=== PATIENT | male | born 1995 | race African-American/Black ===

== ENCOUNTER 2018-10-20 01:16 | Inpatient (IN) | payer SELFPAY ==
[2018-10-20] MEDS ORDERED: IPRATROPIUM/ALBUTEROL 0.5-2.5 MG/3 ML AMPUL NEB PRN (01:44)
[2018-10-20] MEDS ORDERED: NORMAL SALINE 1000 ML 1,000 ML IV PRN ×2 (01:45→02:30)
--- NOTE | 2018-10-20 04:53 | PDOC H&P ---
History of Present Illness Admission Date/PCP: 10/20/18 01:16 Patient complains of: Seizure History of Present Illness: RANDI SAPP is a 23 year old male former [employer] with history of seizure disorder on Keppra. He presented to [facility] after a seizure where he was witnessed to have a second seizure followed by combative behavior requiring restraints, IV Ativan and Haldol. His workup was notable for acute renal failure, elevated total CK and urine drug screen positive for cannabis. He is transferred to [facility] as he is in eligible for care at [facility]. Patient admits lifestyle and medication indiscretion with missing Keppra doses and marijuana. He denies other recreational drug use and/or alcohol. Denying injury, fever chills nausea vomiting or headache. His last seizure was approximately 6 months ago. Past Medical History Medical History: None Neurological Medical History: Reports: Seizures Psychiatric Medical History: Denies: Depression Past Surgical History Past Surgical History: Reports: None Social History Information Source: Patient Smoking Status: Former Smoker Frequency of Alcohol Use: None Hx Recreational Drug Use: No Drugs: Marijuana Hx Prescription Drug Abuse: No - Advance Directive Resuscitation Status: Full Code Family History Family History: Hypertension Parental Family History Reviewed: Yes Children Family History Reviewed: Yes Sibling(s) Family History Reviewed.: Yes Review of Systems Constitutional: ABSENT: chills, fever(s), headache(s), weight gain, weight loss Eyes: ABSENT: visual disturbances Ears: ABSENT: hearing changes Cardiovascular: ABSENT: chest pain, dyspnea on exertion, edema, orthropnea, palpitations Respiratory: ABSENT: cough, hemoptysis Gastrointestinal: ABSENT: abdominal pain, constipation, diarrhea, hematemesis, hematochezia, nausea, vomiting Genitourinary: ABSENT: dysuria, hematuria Musculoskeletal: ABSENT: joint swelling Integumentary: ABSENT: rash, wounds Neurological: ABSENT: abnormal gait, abnormal speech, confusion, dizziness, focal weakness, syncope Psychiatric: ABSENT: anxiety, depression, homidical ideation, suicidal ideation Endocrine: ABSENT: cold intolerance, heat intolerance, polydipsia, polyuria Hematologic/Lymphatic: ABSENT: easy bleeding, easy bruising Physical Exam Vital Signs: Temp Pulse Resp BP Pulse Ox 99.4 F 105 H 18 141/75 H 100 10/20/18 01:40 10/20/18 01:40 10/20/18 01:40 10/20/18 01:40 10/20/18 01:40 Intake & Output 10/18/18 10/19/18 10/20/18 11:59 11:59 11:59 Weight 100.5 kg General appearance: PRESENT: no acute distress, well-developed, well-nourished Head exam: PRESENT: atraumatic, normocephalic Eye exam: PRESENT: conjunctiva pink, EOMI, PERRLA. ABSENT: scleral icterus Ear exam: PRESENT: normal external ear exam Mouth exam: PRESENT: moist, tongue midline Neck exam: ABSENT: carotid bruit, JVD, lymphadenopathy, thyromegaly Respiratory exam: PRESENT: clear to auscultation abby. ABSENT: rales, rhonchi, wheezes Cardiovascular exam: PRESENT: RRR. ABSENT: diastolic murmur, rubs, systolic murmur Pulses: PRESENT: normal dorsalis pedis pul Vascular exam: PRESENT: normal capillary refill GI/Abdominal exam: PRESENT: normal bowel sounds, soft. ABSENT: distended, guarding, mass, organolmegaly, rebound, tenderness Rectal exam: PRESENT: deferred Extremities exam: PRESENT: full ROM. ABSENT: calf tenderness, clubbing, pedal edema Neurological exam: PRESENT: alert, awake, oriented to person, oriented to place, oriented to time, oriented to situation, CN II-XII grossly intact. ABSENT: motor sensory deficit Psychiatric exam: PRESENT: appropriate affect, normal mood. ABSENT: homicidal ideation, suicidal ideation Skin exam: PRESENT: dry, intact, warm. ABSENT: cyanosis, rash Assessment & Plan - Diagnosis (1) Seizure Is this a current diagnosis for this admission?: Yes Plan: Secondary to medication and lifestyle indiscretion. Keppra ordered, Ativan as needed seizure activity. Education (2) Acute renal failure Is this a current diagnosis for this admission?: Yes Plan: Likely secondary to rhabdomyolysis. IV fluid challenge initiated, follow-up chemistry and total CK (3) Rhabdomyolysis Is this a current diagnosis for this admission?: Yes Plan: Secondary to #1, IV fluid challenge initiated, follow-up total CK (4) Substance abuse Is this a current diagnosis for this admission?: Yes Plan: Education - Time Time Spent: 50 to 70 Minutes - Inpatient Certification Medical Necessity: Need Close Monitoring Due to Risk of Patient Decompensation
[2018-10-20 05:30] LABS: ANION GAP 11 (5-19); BLOOD UREA NITROGEN 17 mg/dL (7-20); CALCIUM 9.4 mg/dL (8.4-10.2); CARBON DIOXIDE 20 mmol/L (22-30); CHLORIDE 108 mmol/L (98-107); GLUCOSE 104 mg/dL (75-110); POTASSIUM 4.2 mmol/L (3.6-5.0); SODIUM 138.9 mmol/L (137-145)
[2018-10-20] MEDS: HEPARIN SOD (PORCINE) 5,000 UNIT/ML 1 ML SYRINGE SUBCUT SCH ×3 (07:35→21:12)
[2018-10-20 08:19] LABS: APPEARANCE,URINE CLOUDY; BILIRUBIN,URINE NEGATIVE (NEGATIVE); COLOR,URINE YELLOW; GLUCOSE, URINE NEGATIVE (NEGATIVE); KETONES,URINE NEGATIVE (NEGATIVE); LEUKOCYTE ESTERASE,URINE NEGATIVE (NEGATIVE); NITRITE,URINE NEGATIVE (NEGATIVE); PROTEIN,URINE 100 mg/dL (NEGATIVE); URINE SPECIFIC GRAVITY 1.011; UROBILINOGEN,URINE NEGATIVE mg/dL (<2.0)
[2018-10-20 08:58] LABS: ABSOLUTE BASOPHILS # (AUTO) 0.1 10^3/uL (0.0-0.2); ABSOLUTE LYMPHOCYTES (AUTO) 0.8 10^3/uL (0.5-4.7); ABSOLUTE MONOCYTES (AUTO) 0.9 10^3/uL (0.1-1.4); ABSOLUTE NEUT (AUTO) 10.9 10^3/uL (1.7-8.2); BASOPHILS % (AUTO) 0.7 % (0-2); HEMATOCRIT 43.1 % (37.9-51.0); HEMOGLOBIN 14.6 g/dL (13.5-17.0); MEAN CORPUSCULAR HEMOGLOBIN 30.4 pg (27.0-33.4); MEAN CORPUSCULAR HGB CONC 33.8 g/dL (32.0-36.0); MEAN CORPUSCULAR VOLUME 90 fl (80-97); MONOCYTES % (AUTO) 7.3 % (3-13); PLATELET COUNT 127 10^3/uL (150-450); RED CELL DISTRIBUTION WIDTH 12.6 % (11.5-14.0); TOTAL CELLS COUNTED % (AUTO) 100 %; WHITE BLOOD COUNT 12.7 10^3/uL (4.0-10.5)
[2018-10-20] MEDS ORDERED: NORMAL SALINE 1000 ML 3,000 ML IV ONE (09:00)
[2018-10-20] MEDS: LEVETIRACETAM 500 MG TABLET PO SCH ×2 (09:49→21:44)
[2018-10-20] MEDS ORDERED: DOCUSATE SODIUM 100 MG/10 ML UDC PO SCH (10:00)
[2018-10-20] MEDS ORDERED: NORMAL SALINE 1000 ML 1,000 ML IV ONE (12:09)
[2018-10-20] MEDS ORDERED: DICYCLOMINE HCL 20 MG TABLET PO ONE (15:00)
[2018-10-20] MEDS: NORMAL SALINE 1000 ML 1,000 ML IV PRN ×2 (15:03→17:17)
[2018-10-20] MEDS: DOCUSATE SODIUM 100 MG CAPSULE PO SCH (17:03)
[2018-10-21 05:12] LABS: ABSOLUTE BASOPHILS # (AUTO) 0.1 10^3/uL (0.0-0.2); ABSOLUTE LYMPHOCYTES (AUTO) 0.9 10^3/uL (0.5-4.7); ABSOLUTE MONOCYTES (AUTO) 0.8 10^3/uL (0.1-1.4); ABSOLUTE NEUT (AUTO) 6.4 10^3/uL (1.7-8.2); BASOPHILS % (AUTO) 0.8 % (0-2); EOSINOPHILS % (AUTO) 0.2 % (0-6); HEMATOCRIT 37.6 % (37.9-51.0); HEMOGLOBIN 13.1 g/dL (13.5-17.0); LYMPHOCYTES % (AUTO) 11.3 % (13-45); MEAN CORPUSCULAR HGB CONC 34.7 g/dL (32.0-36.0); MEAN CORPUSCULAR VOLUME 90 fl (80-97); PLATELET COUNT 105 10^3/uL (150-450); RED BLOOD COUNT 4.21 10^6/uL (4.35-5.55); RED CELL DISTRIBUTION WIDTH 12.8 % (11.5-14.0); SEGMENTED NEUTROPHILS % (AUTO) 77.7 % (42-78); TOTAL CELLS COUNTED % (AUTO) 100 %; WHITE BLOOD COUNT 8.2 10^3/uL (4.0-10.5)
[2018-10-21 05:40] LABS: ANION GAP 8 (5-19); BLOOD UREA NITROGEN 23 mg/dL (7-20); CALCIUM 8.7 mg/dL (8.4-10.2); CARBON DIOXIDE 20 mmol/L (22-30); CHLORIDE 113 mmol/L (98-107); GLUCOSE 97 mg/dL (75-110); SODIUM 140.5 mmol/L (137-145)
[2018-10-21 05:45] LABS: POTASSIUM 4.1 mmol/L (3.6-5.0)
[2018-10-21] MEDS: HEPARIN SOD (PORCINE) 5,000 UNIT/ML 1 ML SYRINGE SUBCUT SCH ×3 (05:55→22:07)
[2018-10-21 06:28] LABS: CREATINE KINASE 11053 U/L (55-170)
[2018-10-21] MEDS: LEVETIRACETAM 500 MG TABLET PO SCH ×2 (09:30→22:14)
[2018-10-21] MEDS: DOCUSATE SODIUM 100 MG CAPSULE PO SCH ×2 (09:33→17:11)
[2018-10-21] MEDS ORDERED: NORMAL SALINE 1000 ML 1,000 ML IV PRN (10:47)
[2018-10-21] MEDS ORDERED: RINGERS SOLUTION,LACTATED 2,000 ML IV PRN (10:47)
[2018-10-21] MEDS ORDERED: NORMAL SALINE 1000 ML 2,000 ML IV PRN (11:00)
--- NOTE | 2018-10-21 16:14 | PDOC PROGRESS REPORT ---
Subjective Progress Note for:: 10/21/18 Subjective:: This is a 23 yr old male with a PMH of seizure disorder not complaint on his Keppra at home who was brought in due to recurrence of seizures (x2) and was also noted have rhabdomyolisis with elevated CK and acute renal failure. Patient was given IV fluid bolus and continued on IV fluids. He was given another bolus yesterday and was supposed to be continued on IV fluids but appears he did not get maintenance IV fluids overnight. This morning, his CK and creatinine continue to go up. He does report of generalized muscle pains. Denies chest pain or SOB. He is diuresing well. Reason For Visit: RHABDOMYOLYSIS,ARF Physical Exam Vital Signs: Temp Pulse Resp BP Pulse Ox 98.5 F 69 18 122/87 H 100 10/21/18 11:52 10/21/18 14:00 10/21/18 11:52 10/21/18 11:52 10/21/18 11:52 Intake & Output 10/20/18 10/21/18 10/22/18 06:59 06:59 06:59 Intake Total 4894 2459 Output Total 1575 1200 Balance 3319 1259 Weight 221 lb 9.033 oz 223 lb 1.725 oz General appearance: PRESENT: no acute distress, well-developed, well-nourished Head exam: PRESENT: atraumatic, normocephalic Eye exam: PRESENT: conjunctiva pink, EOMI, PERRLA. ABSENT: scleral icterus Ear exam: PRESENT: normal external ear exam Mouth exam: PRESENT: moist, tongue midline Neck exam: ABSENT: carotid bruit, JVD, lymphadenopathy, thyromegaly Respiratory exam: PRESENT: clear to auscultation abby. ABSENT: rales, rhonchi, wheezes Cardiovascular exam: PRESENT: RRR. ABSENT: diastolic murmur, rubs, systolic murmur Pulses: PRESENT: normal dorsalis pedis pul GI/Abdominal exam: PRESENT: normal bowel sounds, soft. ABSENT: distended, guarding, mass, organolmegaly, rebound, tenderness Rectal exam: PRESENT: deferred Neurological exam: PRESENT: alert, awake, oriented to person, oriented to place, oriented to time, oriented to situation, CN II-XII grossly intact. ABSENT: motor sensory deficit Results Laboratory Results: 10/21/18 04:34 10/21/18 10/21/18 04:34 04:34 WBC 8.2 RBC 4.21 L Hgb 13.1 L Hct 37.6 L MCV 90 MCH 31.0 MCHC 34.7 RDW 12.8 Plt Count 105 L Seg Neutrophils % 77.7 Lymphocytes % 11.3 L Monocytes % 10.0 Eosinophils % 0.2 Basophils % 0.8 Absolute Neutrophils 6.4 Absolute Lymphocytes 0.9 Absolute Monocytes 0.8 Absolute Eosinophils 0.0 Absolute Basophils 0.1 Sodium 140.5 Potassium 4.1 Chloride 113 H Carbon Dioxide 20 L Anion Gap 8 BUN 23 H Creatinine 5.39 H Est GFR ( Amer) 16 L Est GFR (Non-Af Amer) 13 L Glucose 97 Calcium 8.7 10/20/18 10/20/18 10/20/18 04:55 11:01 16:40 Creatine Kinase 1404 H 2667 H 6092 H 10/21/18 04:34 Creatine Kinase 14484 H Assessment & Plan - Diagnosis (1) Acute renal failure Is this a current diagnosis for this admission?: Yes Plan: Secondary to rhadomyolysis. Aggressive IV fluid hydration. Will give 2 L bolus this morning and continue NS at 200 cc/hr. Will repeat CK and BMP this afternoon and will give another bolus. (2) Rhabdomyolysis Is this a current diagnosis for this admission?: Yes Plan: CK has significantly went up today. Plan as per #1. (3) Seizure Is this a current diagnosis for this admission?: Yes Plan: No recurrence since admission. Continue Keppra. - Time Time Spent with patient: 25-34 minutes
[2018-10-21] MEDS ORDERED: NORMAL SALINE 1000 ML 1,000 ML IV ONE (16:30)
[2018-10-21 16:43] LABS: ANION GAP 6 (5-19); BLOOD UREA NITROGEN 24 mg/dL (7-20); CALCIUM 8.5 mg/dL (8.4-10.2); CARBON DIOXIDE 23 mmol/L (22-30); CHLORIDE 113 mmol/L (98-107); GLUCOSE 85 mg/dL (75-110); POTASSIUM 4.1 mmol/L (3.6-5.0); SODIUM 141.5 mmol/L (137-145)
[2018-10-21] MEDS: NORMAL SALINE 1000 ML 1,000 ML IV PRN ×2 (17:06→20:03)
[2018-10-21 17:24] LABS: CREATINE KINASE 25016 U/L (55-170)
--- NOTE | 2018-10-21 19:12 | RADIOLOGY REPORT (SQ) ---
EXAM DESCRIPTION: CT ABD/PELVIS NO ORAL OR IV COMPLETED DATE/TIME: 10/21/2018 7:00 pm REASON FOR STUDY: abd pain/hypog pain, acute renal failure COMPARISON: None. TECHNIQUE: CT scan of the abdomen and pelvis performed without intravenous or oral contrast. Images reviewed with lung, soft tissue, and bone windows. Reconstructed coronal and sagittal MPR images revi ewed. All images stored on PACS. All CT scanners at this facility use dose modulation, iterative reconstruction, and/or weight based d osing when appropriate to reduce radiation dose to as low as reasonably achievable (ALARA). [facility]: Dose Right [facility]: CareDose [facility]: Dose Right [facility]: Teradose 4D [facility]: [employer] RADIATION DOSE: mGy. LIMITATIONS: None. FINDINGS: LOWER CHEST: Trace right pleural fluid. NON-CONTRASTED LIVER, SPLEEN, ADRENALS: Evaluation limited by lack of IV contrast. No identified sign ificant masses. PANCREAS: No masses. No peripancreatic inflammatory changes. GALLBLADDER: Gallbladder looks mildly heterogeneous, possibly with some pericholecystic fluid. No du ct dilatation. RIGHT KIDNEY AND URETER: Minimal perinephric stranding without evidence of mass or obstruction. Slig ht stranding extends along the retroperitoneum/ureter as well. No stones. LEFT KIDNEY AND URETER: Similar findings to the right kidney. No stones. AORTA AND RETROPERITONEUM: No aneurysm. No retroperitoneal masses or adenopathy. BOWEL AND PERITONEAL CAVITY: No obvious masses or inflammatory changes. No free fluid. APPENDIX: Normal. PELVIS, BLADDER, AND ABDOMINAL WALL:Slight thickening of the bladder dome with minimal urachal remnan t. Findings may largely be related to underdistention of the bladder. No discrete mass or stones. No pelvic mass. Trace pelvic free fluid. No abdominal wall mass or hernia. BONES: No significant findings. OTHER: No other significant finding. IMPRESSION: 1. Mild perinephric stranding and subtle retroperitoneal stranding with trace fluid. Findings could be related to urinary tract infection. No obstructing stones or hydronephrosis identified. 2. Heterogeneous gallbladder. This could reflect cholecystitis depending on clinical presentation. 3. Trace pleural fluid. Lungs otherwise clear. 4. Bladder findings as detected. Prominent tissue in the bladder dome is probably artifact and relat ed to underdistention, but difficult to further evaluate. TECHNICAL DOCUMENTATION: JOB ID: [id number] Quality ID # [id number]: Final reports with documentation of one or more dose reduction techniques (e.g., Au tomated exposure control, adjustment of the mA and/or kV according to patient size, use of iterative reconstruction technique) 2010 [employer]- All Rights Reserved Reading location - IP/workstation name: [email or web address]
[2018-10-21] MEDS: ACETAMINOPHEN 325 MG TABLET PO PRN (20:03)
[2018-10-22] MEDS: ACETAMINOPHEN 325 MG TABLET PO PRN (05:07)
[2018-10-22] MEDS: NORMAL SALINE 1000 ML 1,000 ML IV PRN ×3 (05:07→23:27)
[2018-10-22 05:22] LABS: ABSOLUTE EOSINOPHILS # (AUTO) 0.1 10^3/uL (0.0-0.6); ABSOLUTE LYMPHOCYTES (AUTO) 1.1 10^3/uL (0.5-4.7); ABSOLUTE MONOCYTES (AUTO) 0.7 10^3/uL (0.1-1.4); ABSOLUTE NEUT (AUTO) 3.9 10^3/uL (1.7-8.2); BASOPHILS % (AUTO) 0.7 % (0-2); EOSINOPHILS % (AUTO) 1.1 % (0-6); HEMATOCRIT 36.2 % (37.9-51.0); HEMOGLOBIN 12.6 g/dL (13.5-17.0); LYMPHOCYTES % (AUTO) 19.7 % (13-45); MEAN CORPUSCULAR HEMOGLOBIN 31.1 pg (27.0-33.4); MEAN CORPUSCULAR HGB CONC 34.7 g/dL (32.0-36.0); MEAN CORPUSCULAR VOLUME 90 fl (80-97); MONOCYTES % (AUTO) 11.9 % (3-13); PLATELET COUNT 105 10^3/uL (150-450); RED BLOOD COUNT 4.03 10^6/uL (4.35-5.55); RED CELL DISTRIBUTION WIDTH 12.9 % (11.5-14.0); SEGMENTED NEUTROPHILS % (AUTO) 66.6 % (42-78); TOTAL CELLS COUNTED % (AUTO) 100 %; WHITE BLOOD COUNT 5.8 10^3/uL (4.0-10.5)
[2018-10-22] MEDS: HEPARIN SOD (PORCINE) 5,000 UNIT/ML 1 ML SYRINGE SUBCUT SCH ×3 (05:48→22:23)
[2018-10-22 06:02] LABS: ANION GAP 7 (5-19); BLOOD UREA NITROGEN 21 mg/dL (7-20); CALCIUM 8.8 mg/dL (8.4-10.2); CARBON DIOXIDE 21 mmol/L (22-30); CHLORIDE 114 mmol/L (98-107); GLUCOSE 98 mg/dL (75-110); POTASSIUM 4.4 mmol/L (3.6-5.0); SODIUM 141.6 mmol/L (137-145)
[2018-10-22 06:47] LABS: CREATINE KINASE 35084 U/L (55-170)
[2018-10-22] MEDS ORDERED: NORMAL SALINE 1000 ML 2,000 ML IV ONE ×2 (08:30→17:59)
[2018-10-22 08:36] LABS: APPEARANCE,URINE CLEAR; BILIRUBIN,URINE NEGATIVE (NEGATIVE); COLOR,URINE STRAW; GLUCOSE, URINE NEGATIVE (NEGATIVE); KETONES,URINE NEGATIVE (NEGATIVE); LEUKOCYTE ESTERASE,URINE NEGATIVE (NEGATIVE); NITRITE,URINE NEGATIVE (NEGATIVE); PROTEIN,URINE NEGATIVE (NEGATIVE); URINE SPECIFIC GRAVITY 1.004; UROBILINOGEN,URINE NEGATIVE mg/dL (<2.0)
[2018-10-22] MEDS: LEVETIRACETAM 500 MG TABLET PO SCH ×2 (09:25→22:18)
[2018-10-22] MEDS: DOCUSATE SODIUM 100 MG CAPSULE PO SCH ×2 (09:28→17:10)
--- NOTE | 2018-10-22 14:31 | PDOC PROGRESS REPORT ---
Subjective Progress Note for:: 10/22/18 Subjective:: This is a 23 yr old male with a PMH of seizure disorder not complaint on his Keppra at home who was brought in due to recurrence of seizures (x2) and was also noted have rhabdomyolysis with elevated CK and acute renal failure. No acute event overnight. Denies chest pain or SOB. He is diuresing well. He says he feels better today and that the generalized muscle pain is improving. His creatinine has improved but CK has trended up. Reason For Visit: RHABDOMYOLYSIS,ARF Physical Exam Vital Signs: Temp Pulse Resp BP Pulse Ox 98.6 F 50 L 16 138/105 H 100 10/22/18 11:14 10/22/18 11:14 10/22/18 11:14 10/22/18 11:14 10/22/18 11:14 Intake & Output 10/21/18 10/22/18 10/23/18 06:59 06:59 06:59 Intake Total 4894 6003 3100 Output Total 1575 1200 Balance 3319 4803 3100 Weight 223 lb 1.725 oz General appearance: PRESENT: no acute distress, well-developed, well-nourished Head exam: PRESENT: atraumatic, normocephalic Eye exam: PRESENT: conjunctiva pink, EOMI, PERRLA. ABSENT: scleral icterus Ear exam: PRESENT: normal external ear exam Mouth exam: PRESENT: moist, tongue midline Neck exam: ABSENT: carotid bruit, JVD, lymphadenopathy, thyromegaly Respiratory exam: PRESENT: clear to auscultation abby. ABSENT: rales, rhonchi, wheezes Cardiovascular exam: PRESENT: RRR. ABSENT: diastolic murmur, rubs, systolic murmur Pulses: PRESENT: normal dorsalis pedis pul GI/Abdominal exam: PRESENT: normal bowel sounds, soft. ABSENT: distended, guarding, mass, organolmegaly, rebound, tenderness Rectal exam: PRESENT: deferred Neurological exam: PRESENT: alert, awake, oriented to person, oriented to place, oriented to time, oriented to situation, CN II-XII grossly intact. ABSENT: motor sensory deficit Results Laboratory Results: 10/22/18 05:15 10/22/18 05:15 10/21/18 10/22/18 10/22/18 15:22 05:15 05:15 WBC 5.8 RBC 4.03 L Hgb 12.6 L Hct 36.2 L MCV 90 MCH 31.1 MCHC 34.7 RDW 12.9 Plt Count 105 L Seg Neutrophils % 66.6 Lymphocytes % 19.7 Monocytes % 11.9 Eosinophils % 1.1 Basophils % 0.7 Absolute Neutrophils 3.9 Absolute Lymphocytes 1.1 Absolute Monocytes 0.7 Absolute Eosinophils 0.1 Absolute Basophils 0.0 Sodium 141.5 141.6 Potassium 4.1 4.4 Chloride 113 H 114 H Carbon Dioxide 23 21 L Anion Gap 6 7 BUN 24 H 21 H Creatinine 5.49 H 4.63 H Est GFR ( Amer) 16 L 19 L Est GFR (Non-Af Amer) 13 L 16 L Glucose 85 98 Calcium 8.5 8.8 Urine Color Urine Appearance Urine pH Ur Specific Umpire Urine Protein Urine Glucose (UA) Urine Ketones Urine Blood Urine Nitrite Ur Leukocyte Esterase Urine WBC (Auto) Urine RBC (Auto) 10/22/18 08:00 WBC RBC Hgb Hct MCV MCH MCHC RDW Plt Count Seg Neutrophils % Lymphocytes % Monocytes % Eosinophils % Basophils % Absolute Neutrophils Absolute Lymphocytes Absolute Monocytes Absolute Eosinophils Absolute Basophils Sodium Potassium Chloride Carbon Dioxide Anion Gap BUN Creatinine Est GFR ( Amer) Est GFR (Non-Af Amer) Glucose Calcium Urine Color STRAW Urine Appearance CLEAR Urine pH 5.0 Ur Specific Umpire 1.004 Urine Protein NEGATIVE Urine Glucose (UA) NEGATIVE Urine Ketones NEGATIVE Urine Blood MODERATE H Urine Nitrite NEGATIVE Ur Leukocyte Esterase NEGATIVE Urine WBC (Auto) 1 Urine RBC (Auto) 0 10/20/18 10/20/18 10/20/18 04:55 11:01 16:40 Creatine Kinase 1404 H 2667 H 6092 H 10/21/18 10/21/18 10/22/18 04:34 15:22 05:15 Creatine Kinase 14391 H 47730 H 78881 H Impressions: Abdomen/Pelvis CT 10/21/18 17:54 IMPRESSION: 1. Mild perinephric stranding and subtle retroperitoneal stranding with trace fluid. Findings could be related to urinary tract infection. No obstructing stones or hydronephrosis identified. 2. Heterogeneous gallbladder. This could reflect cholecystitis depending on clinical presentation. 3. Trace pleural fluid. Lungs otherwise clear. 4. Bladder findings as detected. Prominent tissue in the bladder dome is probably artifact and related to underdistention, but difficult to further evaluate. Assessment & Plan - Diagnosis (1) Acute renal failure Is this a current diagnosis for this admission?: Yes Plan: Secondary to rhadomyolysis. Will continue aggressive IV fluid hydration. Will give another 2 L bolus this morning and continue NS at 200 cc/hr. Creatinine has improved but CK continues to trend up. Will continue to repeat CK and BMP this afternoon. (2) Rhabdomyolysis Is this a current diagnosis for this admission?: Yes Plan: CK continues to trend up but creatinine has improved. Plan as per #1. (3) Seizure Is this a current diagnosis for this admission?: Yes Plan: Secondary to noncompliance to Keppra. No recurrence since admission. Continue Keppra. - Time Time Spent with patient: 25-34 minutes
[2018-10-22 15:43] LABS: ANION GAP 6 (5-19); BLOOD UREA NITROGEN 17 mg/dL (7-20); CARBON DIOXIDE 23 mmol/L (22-30); CHLORIDE 115 mmol/L (98-107); GLUCOSE 94 mg/dL (75-110); POTASSIUM 3.9 mmol/L (3.6-5.0); SODIUM 144.1 mmol/L (137-145)
[2018-10-22 16:16] LABS: CREATINE KINASE 43585 U/L (55-170)
[2018-10-22] MEDS ORDERED: DICYCLOMINE HCL 10 MG CAPSULE PO ONE (18:00)
[2018-10-22] MEDS ORDERED: PANTOPRAZOLE SODIUM 40 MG VIAL IV ONE (19:00)
[2018-10-22] MEDS: PANTOPRAZOLE SODIUM 40 MG VIAL IV SCH (19:10)
[2018-10-22] MEDS ORDERED: DICYCLOMINE HCL 10 MG CAPSULE ONE (19:51)
--- NOTE | 2018-10-22 22:13 | EKG REPORT ---
SEVERITY:- OTHERWISE NORMAL ECG - SINUS RHYTHM ATRIAL PREMATURE COMPLEX : Confirmed by: Angela Greene MD 22-Oct-2018 22:13:09
[2018-10-23] MEDS: HEPARIN SOD (PORCINE) 5,000 UNIT/ML 1 ML SYRINGE SUBCUT SCH ×4 (05:39→22:48)
[2018-10-23] MEDS: NORMAL SALINE 1000 ML 1,000 ML IV PRN ×2 (06:34→18:34)
[2018-10-23 08:56] LABS: ANION GAP 7 (5-19); BLOOD UREA NITROGEN 13 mg/dL (7-20); CARBON DIOXIDE 24 mmol/L (22-30); CHLORIDE 115 mmol/L (98-107); GLUCOSE 115 mg/dL (75-110); POTASSIUM 3.9 mmol/L (3.6-5.0); SODIUM 146.2 mmol/L (137-145)
[2018-10-23] MEDS: LEVETIRACETAM 500 MG TABLET PO SCH ×2 (09:12→22:51)
[2018-10-23] MEDS: PANTOPRAZOLE SODIUM 40 MG VIAL IV SCH (09:12)
[2018-10-23] MEDS: DOCUSATE SODIUM 100 MG CAPSULE PO SCH ×2 (09:13→17:29)
[2018-10-23 09:48] LABS: CREATINE KINASE 39229 U/L (55-170)
--- NOTE | 2018-10-23 10:46 | RADIOLOGY REPORT (SQ) ---
EXAM DESCRIPTION: CHEST SINGLE VIEW COMPLETED DATE/TIME: 10/23/2018 10:35 am REASON FOR STUDY: shortness of breath COMPARISON: CT abdomen pelvis 10/21/2018 EXAM PARAMETERS: NUMBER OF VIEWS: One view. TECHNIQUE: Single frontal radiographic view of the chest acquired. RADIATION DOSE: NA LIMITATIONS: None. FINDINGS: LUNGS AND PLEURA: Patchy airspace disease right lateral lung base with trace right pleural fluid in the lateral costophrenic sulcus. Left lung clear. No left pleural effusion. No right or left pneumothorax. MEDIASTINUM AND HILAR STRUCTURES: No masses. Contour normal. HEART AND VASCULAR STRUCTURES: Heart normal in size. Normal vasculature. BONES: No acute findings. HARDWARE: None in the chest. OTHER: No other significant finding. IMPRESSION: New airspace disease with trace pleural effusion in the right lateral costophrenic sulcu s TECHNICAL DOCUMENTATION: JOB ID: [id number]- All Rights Reserved Reading location - IP/workstation name: [email or web address]
--- NOTE | 2018-10-23 14:03 | PDOC PROGRESS REPORT ---
Subjective Progress Note for:: 10/23/18 Subjective:: This is a 23 yr old male with a PMH of seizure disorder not complaint on his Keppra at home who was brought in due to recurrence of seizures (x2) and was also noted have rhabdomyolysis with elevated CK and acute renal failure. No acute event overnight. Denies chest pain or SOB. He is diuresing well. He says he continues to feel better. His creatinine continues to improve. CK has also trended down this morning. He did have very minimal SOB this morning but he is saturating well on room air. CXR only shows trace pleural effusion. Fluids were reduced to 150 cc/hr. Reason For Visit: RHABDOMYOLYSIS,ARF Physical Exam Vital Signs: Temp Pulse Resp BP Pulse Ox 97.7 F 52 L 16 142/62 H 100 10/23/18 11:00 10/23/18 11:00 10/23/18 11:00 10/23/18 11:00 10/23/18 11:00 Intake & Output 10/22/18 10/23/18 10/24/18 06:59 06:59 06:59 Intake Total 6003 8459 Output Total 1200 Balance 4803 8459 General appearance: PRESENT: no acute distress, well-developed, well-nourished Head exam: PRESENT: atraumatic, normocephalic Eye exam: PRESENT: conjunctiva pink, EOMI, PERRLA. ABSENT: scleral icterus Ear exam: PRESENT: normal external ear exam Mouth exam: PRESENT: moist, tongue midline Neck exam: ABSENT: carotid bruit, JVD, lymphadenopathy, thyromegaly Respiratory exam: PRESENT: clear to auscultation abby. ABSENT: rales, rhonchi, wheezes Cardiovascular exam: PRESENT: RRR. ABSENT: diastolic murmur, rubs, systolic murmur Pulses: PRESENT: normal dorsalis pedis pul GI/Abdominal exam: PRESENT: normal bowel sounds, soft. ABSENT: distended, guarding, mass, organolmegaly, rebound, tenderness Rectal exam: PRESENT: deferred Neurological exam: PRESENT: alert, awake, oriented to person, oriented to place, oriented to time, oriented to situation, CN II-XII grossly intact. ABSENT: motor sensory deficit Results Laboratory Results: 10/22/18 05:15 10/23/18 08:22 10/22/18 10/23/18 15:10 08:22 Sodium 144.1 146.2 H Potassium 3.9 3.9 Chloride 115 H 115 H Carbon Dioxide 23 24 Anion Gap 6 7 BUN 17 13 Creatinine 3.96 H 2.49 H Est GFR ( Amer) 23 L 39 L Est GFR (Non-Af Amer) 19 L 32 L Glucose 94 115 H Calcium 9.0 9.0 10/20/18 10/20/18 10/20/18 04:55 11:01 16:40 Creatine Kinase 1404 H 2667 H 6092 H 10/21/18 10/21/18 10/22/18 04:34 15:22 05:15 Creatine Kinase 98998 H 78121 H 23478 H 10/22/18 10/23/18 15:10 08:22 Creatine Kinase 97381 H 17432 H Impressions: Abdomen/Pelvis CT 10/21/18 17:54 IMPRESSION: 1. Mild perinephric stranding and subtle retroperitoneal stranding with trace fluid. Findings could be related to urinary tract infection. No obstructing stones or hydronephrosis identified. 2. Heterogeneous gallbladder. This could reflect cholecystitis depending on clinical presentation. 3. Trace pleural fluid. Lungs otherwise clear. 4. Bladder findings as detected. Prominent tissue in the bladder dome is probably artifact and related to underdistention, but difficult to further evaluate. Chest X-Ray 10/23/18 00:00 IMPRESSION: New airspace disease with trace pleural effusion in the right lateral costophrenic sulcus Assessment & Plan - Diagnosis (1) Acute renal failure Is this a current diagnosis for this admission?: Yes Plan: Secondary to rhadomyolysis. Creatinine continues to improve and [place] remain [place] [address]. Will reduce IV fluids for now to 150 cc/hr due to minimal SOB and trace pleural effusion on CXR likely related to aggressive hydration. No obvious congestion on CXR. Lung sounds are clear. (2) Rhabdomyolysis Is this a current diagnosis for this admission?: Yes Plan: Plan as per #1. (3) Seizure Is this a current diagnosis for this admission?: Yes Plan: Secondary to noncompliance to Keppra. No recurrence since admission. Continue Keppra. - Time Time Spent with patient: 25-34 minutes
--- NOTE | 2018-10-23 15:38 | RADIOLOGY REPORT (SQ) ---
EXAM DESCRIPTION: CHEST SINGLE VIEW COMPLETED DATE/TIME: 10/23/2018 3:25 pm REASON FOR STUDY: shortness of breath COMPARISON: 117 EXAM PARAMETERS: NUMBER OF VIEWS: One view. TECHNIQUE: Single frontal radiographic view of the chest acquired. RADIATION DOSE: NA LIMITATIONS: None. FINDINGS: LUNGS AND PLEURA: No opacities, masses or pneumothorax. No pleural effusion. MEDIASTINUM AND HILAR STRUCTURES: No masses. Contour normal. HEART AND VASCULAR STRUCTURES: Heart normal in size. Normal vasculature. BONES: No acute findings. HARDWARE: None in the chest. OTHER: No other significant finding. IMPRESSION: NO ACUTE RADIOGRAPHIC FINDING IN THE CHEST. TECHNICAL DOCUMENTATION: JOB ID: [id number] [employer]- All Rights Reserved Reading location - IP/workstation name: [email or web address]
[2018-10-23 15:59] LABS: ANION GAP 7 (5-19); BLOOD UREA NITROGEN 11 mg/dL (7-20); CALCIUM 8.8 mg/dL (8.4-10.2); CARBON DIOXIDE 27 mmol/L (22-30); CHLORIDE 111 mmol/L (98-107); GLUCOSE 78 mg/dL (75-110); SODIUM 145.4 mmol/L (137-145)
[2018-10-23 16:18] LABS: CREATINE KINASE 38006 U/L (55-170)
[2018-10-24] MEDS: NORMAL SALINE 1000 ML 1,000 ML IV PRN ×4 (00:29→15:38)
[2018-10-24] MEDS: HEPARIN SOD (PORCINE) 5,000 UNIT/ML 1 ML SYRINGE SUBCUT SCH ×3 (05:20→21:53)
[2018-10-24 06:18] LABS: ABSOLUTE EOSINOPHILS # (AUTO) 0.2 10^3/uL (0.0-0.6); ABSOLUTE LYMPHOCYTES (AUTO) 1.4 10^3/uL (0.5-4.7); ABSOLUTE MONOCYTES (AUTO) 0.4 10^3/uL (0.1-1.4); ABSOLUTE NEUT (AUTO) 1.8 10^3/uL (1.7-8.2); BASOPHILS % (AUTO) 0.9 % (0-2); EOSINOPHILS % (AUTO) 5.2 % (0-6); HEMATOCRIT 35.6 % (37.9-51.0); HEMOGLOBIN 12.4 g/dL (13.5-17.0); LYMPHOCYTES % (AUTO) 35.6 % (13-45); MEAN CORPUSCULAR HEMOGLOBIN 30.7 pg (27.0-33.4); MEAN CORPUSCULAR HGB CONC 34.7 g/dL (32.0-36.0); MEAN CORPUSCULAR VOLUME 88 fl (80-97); MONOCYTES % (AUTO) 11.6 % (3-13); PLATELET COUNT 126 10^3/uL (150-450); RED BLOOD COUNT 4.03 10^6/uL (4.35-5.55); RED CELL DISTRIBUTION WIDTH 12.5 % (11.5-14.0); SEGMENTED NEUTROPHILS % (AUTO) 46.7 % (42-78); TOTAL CELLS COUNTED % (AUTO) 100 %; WHITE BLOOD COUNT 3.9 10^3/uL (4.0-10.5)
[2018-10-24 06:34] LABS: ANION GAP 7 (5-19); BLOOD UREA NITROGEN 8 mg/dL (7-20); CALCIUM 8.7 mg/dL (8.4-10.2); CARBON DIOXIDE 28 mmol/L (22-30); CHLORIDE 108 mmol/L (98-107); GLUCOSE 104 mg/dL (75-110); POTASSIUM 3.6 mmol/L (3.6-5.0); SODIUM 142.9 mmol/L (137-145)
[2018-10-24 07:29] LABS: CREATINE KINASE 22419 U/L (55-170)
--- NOTE | 2018-10-24 09:23 | RADIOLOGY REPORT (SQ) ---
EXAM DESCRIPTION: CHEST SINGLE VIEW COMPLETED DATE/TIME: 10/24/2018 9:11 am REASON FOR STUDY: assess for effusion/congestion COMPARISON: 10/23/2018. EXAM PARAMETERS: NUMBER OF VIEWS: One view. TECHNIQUE: Single frontal radiographic view of the chest acquired. RADIATION DOSE: NA LIMITATIONS: None. FINDINGS: LUNGS AND PLEURA: No opacities, masses or pneumothorax. No pleural effusion. MEDIASTINUM AND HILAR STRUCTURES: No masses. Contour normal. HEART AND VASCULAR STRUCTURES: Heart normal in size. Normal vasculature. BONES: No acute findings. HARDWARE: None in the chest. OTHER: No other significant finding. IMPRESSION: NO ACUTE RADIOGRAPHIC FINDING IN THE CHEST. TECHNICAL DOCUMENTATION: JOB ID: [id number] [employer]- All Rights Reserved Reading location - IP/workstation name: [email or web address]
[2018-10-24] MEDS: LEVETIRACETAM 500 MG TABLET PO SCH ×2 (10:29→21:55)
[2018-10-24] MEDS: PANTOPRAZOLE SODIUM 40 MG VIAL IV SCH (10:29)
[2018-10-24] MEDS: DOCUSATE SODIUM 100 MG CAPSULE PO SCH ×2 (10:48→17:24)
--- NOTE | 2018-10-24 15:43 | PDOC PROGRESS REPORT ---
Subjective Progress Note for:: 10/24/18 Subjective:: 10/24/[id number]-fmnn-old male with history of seizure disorder admitted for seizure activity and rhabdomyolysis. no acute events in the last 24 hours. Patient is afebrile. Reason For Visit: SEIZURE,ARF,RHABDOMYOLYSIS, Physical Exam Vital Signs: Temp Pulse Resp BP Pulse Ox 98.6 F 59 L 15 150/91 H 99 10/24/18 11:20 10/24/18 14:00 10/24/18 11:20 10/24/18 11:20 10/24/18 11:20 Intake & Output 10/23/18 10/24/18 10/25/18 06:59 06:59 06:59 Intake Total 8459 7532 1000 Balance 8459 7532 1000 Weight 109.7 kg General appearance: PRESENT: other - Well-built male not in distress. Head exam: PRESENT: atraumatic Eye exam: PRESENT: PERRLA Mouth exam: PRESENT: moist Neck exam: ABSENT: carotid bruit, JVD, lymphadenopathy, thyromegaly Respiratory exam: PRESENT: clear to auscultation abby. ABSENT: rales, rhonchi, wheezes Cardiovascular exam: PRESENT: RRR. ABSENT: diastolic murmur, rubs, systolic murmur GI/Abdominal exam: PRESENT: normal bowel sounds, soft. ABSENT: distended, guarding, mass, organolmegaly, rebound, tenderness Extremities exam: PRESENT: full ROM. ABSENT: calf tenderness, clubbing, pedal edema Neurological exam: PRESENT: alert, awake, oriented to person, oriented to place, oriented to time, oriented to situation, CN II-XII grossly intact. ABSENT: motor sensory deficit Psychiatric exam: PRESENT: appropriate affect, normal mood. ABSENT: homicidal ideation, suicidal ideation Results Laboratory Results: 10/24/18 05:18 10/24/18 05:18 10/23/18 10/23/18 10/24/18 08:22 15:30 05:18 WBC 3.9 L RBC 4.03 L Hgb 12.4 L Hct 35.6 L MCV 88 MCH 30.7 MCHC 34.7 RDW 12.5 Plt Count 126 L Seg Neutrophils % 46.7 Lymphocytes % 35.6 Monocytes % 11.6 Eosinophils % 5.2 Basophils % 0.9 Absolute Neutrophils 1.8 Absolute Lymphocytes 1.4 Absolute Monocytes 0.4 Absolute Eosinophils 0.2 Absolute Basophils 0.0 Sodium 146.2 H 145.4 H Potassium 3.9 4.0 Chloride 115 H 111 H Carbon Dioxide 24 27 Anion Gap 7 7 BUN 13 11 Creatinine 2.49 H 1.91 H Est GFR ( Amer) 39 L 53 L Est GFR (Non-Af Amer) 32 L 44 L Glucose 115 H 78 Calcium 9.0 8.8 10/24/18 05:18 WBC RBC Hgb Hct MCV MCH MCHC RDW Plt Count Seg Neutrophils % Lymphocytes % Monocytes % Eosinophils % Basophils % Absolute Neutrophils Absolute Lymphocytes Absolute Monocytes Absolute Eosinophils Absolute Basophils Sodium 142.9 Potassium 3.6 Chloride 108 H Carbon Dioxide 28 Anion Gap 7 BUN 8 Creatinine 1.59 H Est GFR ( Amer) > 60 Est GFR (Non-Af Amer) 54 L Glucose 104 Calcium 8.7 10/20/18 10/20/18 10/20/18 04:55 11:01 16:40 Creatine Kinase 1404 H 2667 H 6092 H 10/21/18 10/21/18 10/22/18 04:34 15:22 05:15 Creatine Kinase 93569 H 21715 H 88258 H 10/22/18 10/23/18 10/23/18 15:10 08:22 15:30 Creatine Kinase 22189 H 22295 H 66399 H 10/24/18 05:18 Creatine Kinase 80772 H Impressions: Abdomen/Pelvis CT 10/21/18 17:54 IMPRESSION: 1. Mild perinephric stranding and subtle retroperitoneal stranding with trace fluid. Findings could be related to urinary tract infection. No obstructing stones or hydronephrosis identified. 2. Heterogeneous gallbladder. This could reflect cholecystitis depending on clinical presentation. 3. Trace pleural fluid. Lungs otherwise clear. 4. Bladder findings as detected. Prominent tissue in the bladder dome is probably artifact and related to underdistention, but difficult to further evaluate. Chest X-Ray 10/24/18 06:00 IMPRESSION: NO ACUTE RADIOGRAPHIC FINDING IN THE CHEST. Assessment & Plan - Diagnosis (1) Acute renal failure Is this a current diagnosis for this admission?: Yes Plan: Secondary to rhadomyolysis. Creatinine continues to improve and [place] remain [place] [address]. Will reduce IV fluids for now to 150 cc/hr due to minimal SOB and trace pleural effusion on CXR likely related to aggressive hydration. No obvious congestion on CXR. Lung sounds are clear. 10/24/2018-creatinine is improved to 1.58 on admission it was 5.47. Acute renal failure most likely secondary to rhabdomyolysis. Plan is to decrease the fluids to 50 cc/h. Patient is drinking a lot of Gatorade and water. Complaining is going to the bathroom every half an hour to Pee. (2) Rhabdomyolysis Is this a current diagnosis for this admission?: Yes Plan: 10/24/2018-with IV fluids CPK levels are coming down today it is 22,400. Yest erday it was 39,000. Plan is to cut down the fluids to 50 cc/h. On examination of the chest few crackles at the bases. Requested the labs for CPK and CMP tomorrow. (3) Seizure Is this a current diagnosis for this admission?: Yes Plan: 10/24/2018 patient is on Keppra 750 mg every 12 hours plan is to continue the present management. - Time Time Spent with patient: 15-24 minutes Smoking Cessation Education: over 10 minutes Medications reviewed and adjusted accordingly: Yes Anticipated discharge: Home
[2018-10-24] MEDS: FAMOTIDINE 20 MG TABLET PO SCH (21:54)
[2018-10-24] MEDS ORDERED: (PENDING PHARMACY ID) (Levetiracetam [Keppra] 750 MG) PO SCH (22:00)
[2018-10-25] MEDS: HEPARIN SOD (PORCINE) 5,000 UNIT/ML 1 ML SYRINGE SUBCUT SCH ×3 (05:12→21:21)
[2018-10-25 06:03] LABS: ABSOLUTE EOSINOPHILS # (AUTO) 0.2 10^3/uL (0.0-0.6); ABSOLUTE LYMPHOCYTES (AUTO) 1.3 10^3/uL (0.5-4.7); ABSOLUTE MONOCYTES (AUTO) 0.4 10^3/uL (0.1-1.4); ABSOLUTE NEUT (AUTO) 2.1 10^3/uL (1.7-8.2); BASOPHILS % (AUTO) 1.2 % (0-2); EOSINOPHILS % (AUTO) 5.8 % (0-6); HEMATOCRIT 37.5 % (37.9-51.0); HEMOGLOBIN 13.1 g/dL (13.5-17.0); MEAN CORPUSCULAR HEMOGLOBIN 30.9 pg (27.0-33.4); MEAN CORPUSCULAR HGB CONC 34.8 g/dL (32.0-36.0); MEAN CORPUSCULAR VOLUME 89 fl (80-97); MONOCYTES % (AUTO) 9.3 % (3-13); PLATELET COUNT 166 10^3/uL (150-450); RED BLOOD COUNT 4.22 10^6/uL (4.35-5.55); RED CELL DISTRIBUTION WIDTH 12.6 % (11.5-14.0); SEGMENTED NEUTROPHILS % (AUTO) 51.7 % (42-78); TOTAL CELLS COUNTED % (AUTO) 100 %; WHITE BLOOD COUNT 4.1 10^3/uL (4.0-10.5)
[2018-10-25 06:26] LABS: ALANINE AMINOTRANSFERASE 110 U/L (21-72); ALBUMIN 3.5 g/dL (3.5-5.0); ALKALINE PHOSPHATASE 52 U/L (38-126); ANION GAP 7 (5-19); ASPARTATE AMINO TRANSFERASE 183 U/L (17-59); BILIRUBIN,DIRECT 0.2 mg/dL (0.0-0.4); BILIRUBIN,TOTAL 0.5 mg/dL (0.2-1.3); BLOOD UREA NITROGEN 9 mg/dL (7-20); CARBON DIOXIDE 35 mmol/L (22-30); CHLORIDE 103 mmol/L (98-107); GLUCOSE 104 mg/dL (75-110); POTASSIUM 3.6 mmol/L (3.6-5.0); SODIUM 145.1 mmol/L (137-145); TOTAL PROTEIN 6.4 g/dL (6.3-8.2)
[2018-10-25 06:53] LABS: CREATINE KINASE 11040 U/L (55-170)
[2018-10-25] MEDS: MAGNESIUM SULFATE 1 GM/D5W 100 ML IV SCH ×2 (07:56→09:20)
[2018-10-25] MEDS: LEVETIRACETAM 500 MG TABLET PO SCH ×2 (09:19→21:23)
[2018-10-25] MEDS: FAMOTIDINE 20 MG TABLET PO SCH ×2 (09:20→21:24)
[2018-10-25] MEDS: DOCUSATE SODIUM 100 MG CAPSULE PO SCH ×2 (09:23→17:19)
[2018-10-25] MEDS: NORMAL SALINE 1000 ML 1,000 ML IV PRN (11:48)
[2018-10-25] MEDS ORDERED: MAGNESIUM SULFATE/D5W 1 GM/100 ML RTUPB IV SCH (12:15)
--- NOTE | 2018-10-25 12:25 | PDOC PROGRESS REPORT ---
Subjective Progress Note for:: 10/25/18 Subjective:: 10/24/[id number]-zaop-old male with history of seizure disorder admitted for seizure activity and rhabdomyolysis. no acute events in the last 24 hours. Patient is afebrile. 10/25/2018 no acute events in the last 24 hours. Patient is afebrile. Comfortably sleeping in the bed denies any complaints. Reason For Visit: SEIZURE,ARF,RHABDOMYOLYSIS, Physical Exam Vital Signs: Temp Pulse Resp BP Pulse Ox 98.5 F 77 16 139/62 H 96 10/25/18 11:37 10/25/18 11:37 10/25/18 11:37 10/25/18 11:37 10/25/18 11:37 Intake & Output 10/24/18 10/25/18 10/26/18 06:59 06:59 06:59 Intake Total 7532 2760 1200 Balance 7532 2760 1200 Weight 109.7 kg 109.2 kg General appearance: PRESENT: no acute distress Head exam: PRESENT: atraumatic Eye exam: PRESENT: PERRLA Mouth exam: PRESENT: moist Neck exam: ABSENT: carotid bruit, JVD, lymphadenopathy, thyromegaly Respiratory exam: PRESENT: clear to auscultation abby. ABSENT: rales, rhonchi, wheezes Cardiovascular exam: PRESENT: RRR. ABSENT: diastolic murmur, rubs, systolic murmur Pulses: PRESENT: normal dorsalis pedis pul GI/Abdominal exam: PRESENT: normal bowel sounds, soft. ABSENT: distended, guarding, mass, organolmegaly, rebound, tenderness Extremities exam: PRESENT: full ROM. ABSENT: calf tenderness, clubbing, pedal edema Neurological exam: PRESENT: alert, awake, oriented to person, oriented to place, oriented to time, oriented to situation, CN II-XII grossly intact. ABSENT: motor sensory deficit Psychiatric exam: PRESENT: appropriate affect, normal mood. ABSENT: homicidal ideation, suicidal ideation Results Laboratory Results: 10/25/18 05:18 10/25/18 05:18 10/25/18 10/25/18 05:18 05:18 WBC 4.1 RBC 4.22 L Hgb 13.1 L Hct 37.5 L MCV 89 MCH 30.9 MCHC 34.8 RDW 12.6 Plt Count 166 Seg Neutrophils % 51.7 Lymphocytes % 32.0 Monocytes % 9.3 Eosinophils % 5.8 Basophils % 1.2 Absolute Neutrophils 2.1 Absolute Lymphocytes 1.3 Absolute Monocytes 0.4 Absolute Eosinophils 0.2 Absolute Basophils 0.0 Sodium 145.1 H Potassium 3.6 Chloride 103 Carbon Dioxide 35 H Anion Gap 7 BUN 9 Creatinine 1.33 H Est GFR ( Amer) > 60 Est GFR (Non-Af Amer) > 60 Glucose 104 Calcium 9.0 Magnesium 1.0 L* Total Bilirubin 0.5 AST 183 H ALT 110 H Alkaline Phosphatase 52 Total Protein 6.4 Albumin 3.5 10/20/18 10/20/18 10/20/18 04:55 11:01 16:40 Creatine Kinase 1404 H 2667 H 6092 H 10/21/18 10/21/18 10/22/18 04:34 15:22 05:15 Creatine Kinase 77118 H 31544 H 21557 H 10/22/18 10/23/18 10/23/18 15:10 08:22 15:30 Creatine Kinase 68416 H 90600 H 30445 H 10/24/18 10/25/18 05:18 05:18 Creatine Kinase 87347 H 32881 H Impressions: Abdomen/Pelvis CT 10/21/18 17:54 IMPRESSION: 1. Mild perinephric stranding and subtle retroperitoneal stranding with trace fluid. Findings could be related to urinary tract infection. No obstructing stones or hydronephrosis identified. 2. Heterogeneous gallbladder. This could reflect cholecystitis depending on clinical presentation. 3. Trace pleural fluid. Lungs otherwise clear. 4. Bladder findings as detected. Prominent tissue in the bladder dome is probably artifact and related to underdistention, but difficult to further evaluate. Chest X-Ray 10/24/18 06:00 IMPRESSION: NO ACUTE RADIOGRAPHIC FINDING IN THE CHEST. Assessment & Plan - Diagnosis (1) Acute renal failure Is this a current diagnosis for this admission?: Yes Plan: Secondary to rhadomyolysis. Creatinine continues to improve and [place] remain [place] [address]. Will reduce IV fluids for now to 150 cc/hr due to minimal SOB and trace pleural effusion on CXR likely related to aggressive hydration. No obvious congestion on CXR. Lung sounds are clear. 10/24/2018-creatinine is improved to 1.58 on admission it was 5.47. Acute renal failure most likely secondary to rhabdomyolysis. Plan is to decrease the fluids to 50 cc/h. Patient is drinking a lot of Gatorade and water. Complaining is going to the bathroom every half an hour to Pee. 10/25/2018-creatinine was improved to 1.33. At the time of admission creatinine is 5.41 .acute kidney failure secondary to rhabdomyolysis resolving. Plan is to discontinue his IV fluids today. (2) Rhabdomyolysis Is this a current diagnosis for this admission?: Yes Plan: 10/24/2018-with IV fluids CPK levels are coming down today it is 22,400. Yesterday it was 39,000. Plan is to cut down the fluids to 50 cc/h. On ex amination of the chest few crackles at the bases. Requested the labs for CPK and CMP tomorrow. 10/25/2018-CPK levels today is 11,000 he dropped from 22,000 from yesterday patient is drinking plenty of oral liquids. Asymptomatic. We are going to stop his IV fluids for now. Plan is to recheck his CPK levels tomorrow. (3) Seizure Is this a current diagnosis for this admission?: Yes Plan: 10/24/2018 patient is on Keppra 750 mg every 12 hours plan is to continue the present management. 10/25/2018 patient is on Keppra 750 mg p.o. twice a day no seizure activity in the last 48 hours. Plan is to continue the present management. - Time Time Spent with patient: 15-24 minutes Smoking Cessation Education: over 10 minutes Medications reviewed and adjusted accordingly: Yes Anticipated discharge: Home
[2018-10-26] MEDS: HEPARIN SOD (PORCINE) 5,000 UNIT/ML 1 ML SYRINGE SUBCUT SCH ×3 (05:38→14:16)
[2018-10-26 05:44] LABS: ABSOLUTE BASOPHILS # (AUTO) 0.1 10^3/uL (0.0-0.2); ABSOLUTE EOSINOPHILS # (AUTO) 0.2 10^3/uL (0.0-0.6); ABSOLUTE LYMPHOCYTES (AUTO) 1.6 10^3/uL (0.5-4.7); ABSOLUTE MONOCYTES (AUTO) 0.4 10^3/uL (0.1-1.4); ABSOLUTE NEUT (AUTO) 2.5 10^3/uL (1.7-8.2); BASOPHILS % (AUTO) 1.2 % (0-2); EOSINOPHILS % (AUTO) 4.1 % (0-6); HEMOGLOBIN 13.6 g/dL (13.5-17.0); LYMPHOCYTES % (AUTO) 34.5 % (13-45); MEAN CORPUSCULAR HGB CONC 34.8 g/dL (32.0-36.0); MEAN CORPUSCULAR VOLUME 89 fl (80-97); MONOCYTES % (AUTO) 8.2 % (3-13); PLATELET COUNT 168 10^3/uL (150-450); RED BLOOD COUNT 4.38 10^6/uL (4.35-5.55); RED CELL DISTRIBUTION WIDTH 12.5 % (11.5-14.0); TOTAL CELLS COUNTED % (AUTO) 100 %; WHITE BLOOD COUNT 4.8 10^3/uL (4.0-10.5)
[2018-10-26 06:06] LABS: ALANINE AMINOTRANSFERASE 157 U/L (21-72); ALBUMIN 4.2 g/dL (3.5-5.0); ALKALINE PHOSPHATASE 58 U/L (38-126); ANION GAP 8 (5-19); ASPARTATE AMINO TRANSFERASE 212 U/L (17-59); BILIRUBIN,DIRECT 0.1 mg/dL (0.0-0.4); BILIRUBIN,TOTAL 0.5 mg/dL (0.2-1.3); BLOOD UREA NITROGEN 12 mg/dL (7-20); CALCIUM 9.8 mg/dL (8.4-10.2); CARBON DIOXIDE 34 mmol/L (22-30); CHLORIDE 102 mmol/L (98-107); GLUCOSE 93 mg/dL (75-110); POTASSIUM 3.9 mmol/L (3.6-5.0); SODIUM 144.4 mmol/L (137-145)
[2018-10-26 07:02] LABS: CREATINE KINASE 6057 U/L (55-170)
[2018-10-26] MEDS: LEVETIRACETAM 500 MG TABLET PO SCH (09:31)
[2018-10-26] MEDS: FAMOTIDINE 20 MG TABLET PO SCH (09:32)
[2018-10-26] MEDS: DOCUSATE SODIUM 100 MG CAPSULE PO SCH (09:32)
[2018-10-26] MEDS ORDERED: MAGNESIUM SULFATE 4 GM/100 ML RTUPB IV ONE (11:30)
--- NOTE | 2018-10-26 13:22 | PDOC DISCHARGE SUMMARY ---
General - Admit/Disc Date/PCP Admission Date/Primary Care Provider: 10/20/18 01:16 Discharge Date: 10/26/18 - Discharge Diagnosis (1) Acute renal failure Is this a current diagnosis for this admission?: Yes Summary: Secondary to rhadomyolysis. Creatinine continues to improve and [place] remain [place] [address]. Will reduce IV fluids for now to 150 cc/hr due to minimal SOB and trace pleural effusion on CXR likely related to aggressive hydration. No obvious congestion on CXR. Lung sounds are clear. 10/24/2018-creatinine is improved to 1.58 on admission it was 5.47. Acute renal failure most likely secondary to rhabdomyolysis. Plan is to decrease the fluids to 50 cc/h. Patient is drinking a lot of Gatorade and water. Complaining is going to the bathroom every half an hour to Pee. 10/25/2018-creatinine was improved to 1.33. At the time of admission creatinine is 5.41 .acute kidney failure secondary to rhabdomyolysis resolving. Plan is to discontinue his IV fluids today. 10/26/2018-patient is admitted with creatinine of more than 5.47 today it was 1.21 the acute renal failure most likely prerenal also rhabdomyolysis may be contributing factor. Acute kidney injury is resolved. (2) Rhabdomyolysis Is this a current diagnosis for this admission?: Yes Summary: 10/24/2018-with IV fluids CPK levels are coming down today it is 22,400. Yesterday it was 39,000. Plan is to cut down the fluids to 50 cc/h. On examination of the chest few crackles at the bases. Requested the labs for CPK and CMP tomorrow. 10/25/2018-CPK levels today is 11,000 he dropped from 22,000 from yesterday patient is drinking plenty of oral liquids. Asymptomatic. We are going to stop his IV fluids for now. Plan is to recheck his CPK levels tomorrow. 10/26/2018 CPK level came down to 6000 today. Significant thickened improvement in CPK levels from 11,000 yesterday. Patient is drinking plenty of fluids and Gatorade. She is asymptomatic. High CPK levels probably may be secondary to se izure activity. No seizures since hospitalization. (3) Seizure Is this a current diagnosis for this admission?: Yes Summary: 10/24/2018 patient is on Keppra 750 mg every 12 hours plan is to continue the present management. 10/25/2018 patient is on Keppra 750 mg p.o. twice a day no seizure activity in the last 48 hours. Plan is to continue the present management. 10/26/2017 patient is getting Keppra 750 mg p.o. twice daily here patient is stable for the last 48 hours. I gave the prescription for the patient to fill the Keppra 750 mg p.o. twice daily. Strongly advised him to follow-up with his primary care physician in 3-5 days. Patient agreed and verbalized his response. - Additional Information Resuscitation Status: Full Code Discharge Diet: As Tolerated, Regular Discharge Activity: Activity As Tolerated Prescriptions: Levetiracetam [Keppra 500 mg Tablet] 750 mg PO Q12 #60 tablet Levetiracetam [Keppra] 750 mg PO BID #60 tablet Home Medications: Levetiracetam [Keppra 500 mg Tablet] 750 mg PO Q12 #60 tablet 10/26/18 Levetiracetam [Keppra] 750 mg PO BID #60 tablet 10/26/18 History of Present Illness History of Present Illness: RANDI SAPP is a 23 year old male former [employer] with history of seizure disorder on Keppra. He presented to [facility] after a seizure where he was witnessed to have a second seizure foll owed by combative behavior requiring restraints, IV Ativan and Haldol. His workup was notable for acute renal failure, elevated total CK and urine drug screen positive for cannabis. He is transferred to [facility] as he is in eligible for care at [facility]. Patient admits lifestyle and medication indiscretion with missing Keppra doses and marijuana. He denies other recreational drug use and/or alcohol. Denying injury, fever chills nausea vomiting or headache. His last seizure was approximately 6 months ago. Physical Exam Vital Signs: Temp Pulse Resp BP Pulse Ox 98.3 F 82 16 137/78 H 98 10/26/18 00:00 10/26/18 07:00 10/26/18 00:00 10/26/18 00:00 10/26/18 00:00 Intake & Output 10/25/18 10/26/18 10/27/18 06:59 06:59 06:59 Intake Total 2760 2552 Balance 2760 2552 Weight 109.2 kg 109 kg General appearance: PRESENT: no acute distress Head exam: PRESENT: atraumatic Eye exam: PRESENT: PERRLA Mouth exam: PRESENT: dry mucosa Neck exam: ABSENT: carotid bruit, JVD, lymphadenopathy, thyromegaly Respiratory exam: PRESENT: clear to auscultation abby. ABSENT: rales, rhonchi, wheezes Cardiovascular exam: PRESENT: RRR. ABSENT: diastolic murmur, rubs, systolic murmur GI/Abdominal exam: PRESENT: normal bowel sounds, soft. ABSENT: distended, guarding, mass, organolmegaly, rebound, tenderness Extremities exam: PRESENT: full ROM. ABSENT: calf tenderness, clubbing, pedal edema Neurological exam: PRESENT: alert, awake, oriented to person, oriented to place, oriented to time, oriented to situation, CN II-XII grossly intact. ABSENT: motor sensory deficit Results Laboratory Results: 10/26/18 05:11 10/26/18 05:11 10/25/18 10/26/18 10/26/18 12:58 05:11 05:11 WBC 4.8 RBC 4.38 Hgb 13.6 Hct 39.0 MCV 89 MCH 31.0 MCHC 34.8 RDW 12.5 Plt Count 168 Seg Neutrophils % 52.0 Lymphocytes % 34.5 Monocytes % 8.2 Eosinophils % 4.1 Basophils % 1.2 Absolute Neutrophils 2.5 Absolute Lymphocytes 1.6 Absolute Monocytes 0.4 Absolute Eosinophils 0.2 Absolute Basophils 0.1 Sodium 144.4 Potassium 3.9 Chloride 102 Carbon Dioxide 34 H Anion Gap 8 BUN 12 Creatinine 1.21 Est GFR ( Amer) > 60 Est GFR (Non-Af Amer) > 60 Glucose 93 Calcium 9.8 Magnesium 1.5 L 1.3 L Total Bilirubin 0.5 AST 212 H ALT 157 H Alkaline Phosphatase 58 Total Protein 7.0 Albumin 4.2 10/20/18 10/20/18 10/20/18 04:55 11:01 16:40 Creatine Kinase 1404 H 2667 H 6092 H 10/21/18 10/21/18 10/22/18 04:34 15:22 05:15 Creatine Kinase 05295 H 79622 H 82408 H 10/22/18 10/23/1819 15:10 08:22 15:30 Creatine Kinase 08899 H 40749 H 73083 H 10/24/18 10/25/18 10/26/18 05:18 05:18 05:11 Creatine Kinase 74805 H 61024 H 6057 H Impressions: Abdomen/Pelvis CT 10/21/18 17:54 IMPRESSION: 1. Mild perinephric stranding and subtle retroperitoneal stranding with trace fluid. Findings could be related to urinary tract infection. No obstructing stones or hydronephrosis identified. 2. Heterogeneous gallbladder. This could reflect cholecystitis depending on clinical presentation. 3. Trace pleural fluid. Lungs otherwise clear. 4. Bladder findings as detected. Prominent tissue in the bladder dome is probably artifact and related to underdistention, but difficult to further evaluate. Chest X-Ray 10/24/18 06:00 IMPRESSION: NO ACUTE RADIOGRAPHIC FINDING IN THE CHEST. Qualifiers - * PATIENT BEING DISCHARGED WITH ANY OF THE FOLLOWING DIAGNOSIS: No VTE patient discharged on overlapping Therapy?: Yes
[2018-10-26 16:14] VITALS: BP 139/77
== END 2018-10-26 16:30 | disposition home or self-care (01) | DRG 683 ==
LOC: OBSVTOIN 01:16 → INTOOBSV 01:16 → 4W 01:16
PROVIDERS: ADMIT Internal Medicine; ATTEND Internal Medicine
DX: N17.9 Acute kidney failure, unspecified (principal); M62.82 Rhabdomyolysis; T42.6X6A Underdosing of other antiepileptic and sedative-hypnotic drugs, initial encounter; F12.10 Cannabis abuse, uncomplicated; G40.909 Epilepsy, unspecified, not intractable, without status epilepticus; Z87.891 Personal history of nicotine dependence; Z82.49 Family history of ischemic heart disease and other diseases of the circulatory system; Z79.899 Other long term (current) drug therapy
CPT/HCPCS: 36415; 71045; 74176; 80048; 80053; 81001; 82550; 83735; 85025; 93005; 93010; G0378; J1644; J3475; J3490; J7030; S0164